=== PATIENT | male | born 1985 | race Two or more races ===

== ENCOUNTER 2020-02-23 21:33 | Emergency (ER) | payer SELFPAY ==
--- NOTE | 2020-02-23 21:56 | ER Document Report ---
ED General - General Stated Complaint: LEFT SIDED NUMBNESS,DIZZINESS Time Seen by Provider: 02/23/20 21:44 Primary Care Provider: [facility] [Provider Group] - Follow up as needed Notes: 35-year-old male with no medical history but a family history of hypertension diabetes who presents with about 4 days of left-sided face pain emanating from the ear down the jaw with some paresthesia. Spares the forehead. It is intermittent. No visual symptoms eye tearing visual phenomena blurry vision neck stiffness photophobia headache or fever. Today felt some transient left biceps numbness which is now resolved. No history of seizures or migraines no history of stroke, no weakness. - Related Data Allergies/Adverse Reactions: No Known Allergies Allergy (Unverified 02/23/20 21:56) Past Medical History - Social History Smoking Status: Never Smoker Family History: None Patient has suicidal ideation: No Patient has homicidal ideation: No Review of Systems - Review of Systems Notes: REVIEW OF SYSTEMS GEN: Denies fever, chills, weight loss ENT: Denies sore throat, nasal discharge, ear pain EYES: Denies blurry vision, eye pain, discharge CV: Denies chest pain, palpitations, edema RESP: Denies cough, shortness of breath, wheezing GI: Denies abdominal pain, nausea, vomiting, diarrhea MSK: Denies joint pain/swelling, edema, SKIN: Denies rash, skin lesions LYMPH: Denies swollen glands/lymph nodes NEURO: D see HPI iness PSYCH: Denies depression, suicidal or homicidal ideation PHYSICAL EXAMINATION General: No acute distress, well-nourished Head: Atraumatic, normocephalic ENT: Mouth normal, oropharynx moist, no exudates or tonsillar enlargement Eyes: Conjunctiva normal, pupils equal, lids normal Neck: No JVD, supple, no guarding CVS: Normal rate, regular rhythm, no murmurs Resp: No resp distress, equal and normal breath sounds bilaterally GI: Nondistended, soft, no tenderness to palpation, no rebound or guarding Ext: No deformities, no edema, normal range of motion in upper and lower ext Back: No CVA or midline TTP Skin: No rash, warm Lymphatic: No lymphadeopathy noted Neuro: Awake, alert. Face symmetric. GCS 15. Cranial nerves II through XII are intact including facial sensation tongue protrusion. Language is fluent memory is intact. 5 out of 5 strength and sensation all major muscle groups with no pronator drift, no sensory deficits throughout including the trunk. Physical Exam - Vital signs Vitals: Temp Pulse BP Pulse Ox 97.4 F 66 139/89 H 98 02/23/20 21:40 02/23/20 21:40 02/23/20 21:40 02/23/20 21:40 Course - Re-evaluation Re-evalutation: 02/23/20 21:55 Face pain and paresthesias not reproducible on neuro exam with a family history of diabetes and hypertension. Doubt stroke doubt seizure. Will check CT for mass but this is quite unlikely. Doubt subclinical seizures meningitis infection trigeminal neuralgia or any other serious illness including venous sinus thrombosis elevated cranial pressure tension cluster headache. No evidence of Ramirez's palsy clinically. If CT negative blood sugar normal, patient is safe for discharge primary care follow-up. I have discussed with the patient there likely diagnosis, aftercare plan, follow-up plans and my usual and customary return precautions. They verbalized understanding of this. - Vital Signs Vital signs: Temp Pulse Resp BP Pulse Ox 98.0 F 70 20 180/83 H 98 02/23/20 22:57 02/23/20 22:57 02/23/20 22:57 02/23/20 22:57 02/23/20 22:57 - Diagnostic Test Radiology reviewed: Image reviewed, Reports reviewed Discharge - Discharge Clinical Impression: Facial paresthesia Condition: Good Disposition: HOME, SELF-CARE Instructions: Numbness or Paresthesia ([facility]) Referrals: [facility] [Provider Group] - Follow up as needed
--- NOTE | 2020-02-23 22:25 | RADIOLOGY REPORT (SQ) ---
CT HEAD WITHOUT IV CONTRAST EXAM DATE: 02/23/2020 9:51 PM CDT HISTORY: Left facial numbness. COMPARISON: None. TECHNIQUE: CT scan of the brain without IV contrast. This exam was performed according to our departmental dose-optimization program, which includes automated exposure control, adjustment of the mA and/or kV according to patient size and/or use of iterative reconstruction technique. FINDINGS: The ventricles, cisterns, and sulci are age-appropriate. No evidence of acute infarction, intracranial hemorrhage, extra-axial fluid collection, or midline shift. No air-fluid levels are seen in the paranasal sinuses to suggest acute sinusitis. No depressed skull fracture. IMPRESSION: No acute intracranial findings.
[2020-02-23 22:57] VITALS: BP 180/83
== END 2020-02-23 22:57 | disposition home or self-care (01) ==
LOC: ER 21:33
DX: R20.2 Paresthesia of skin (principal); R51 Headache; I10 Essential (primary) hypertension; E11.9 Type 2 diabetes mellitus without complications
CPT/HCPCS: 70450; 82962; 99284